=== PATIENT | female | born 2005 | race Two or more races ===

== ENCOUNTER 2024-11-26 17:23 | Emergency (ER) | payer MEDICAID, SELFPAY ==
[2024-11-26 17:25] VITALS: BMI 31.7
[2024-11-26 17:57] VITALS: BP 135/85; PULSE 93; RESP 19; TEMP 36.6; O2SAT 98
--- NOTE | 2024-11-26 17:57 | PD.EDRME ---
Rapid Medical Screening Exam RME Arrival date/time: 11/26/24 17:23 Chief Complaint: Ankle/Foot Injury Time Seen by Provider: 11/26/24 17:57 Vital signs: Vital Signs Temperature 97.9 F 11/26/24 17:57 Pulse Rate 93 11/26/24 17:57 Respiratory Rate 19 11/26/24 17:57 Blood Pressure 135/85 H 11/26/24 17:57 Pulse Oximetry (%) 98 11/26/24 17:57 Oxygen Delivery Method Room Air 11/26/24 17:57 RME Narrative: 19-year-old female presents to the ED with a complaint of left ankle pain and swelling as well as bruising secondary to an injury she sustained on Tuesday. She tripped and fell, exacerbating a previous injury approximately 2 months ago. She was not evaluated for that injury at that time. She denies numbness or tingling.
--- NOTE | 2024-11-26 18:01 | XR_ITS ---
EXAMINATION: Ankle, left 3 views . Technique: Ankle AP, oblique, lateral 3 views Date and time of exam: November 26, 2024 1809 hrs. Indications: Patient fell 3 days ago with injury to the knee, ankle pain. Findings: Bimalleolar soft tissue swelling No occult fracture or dislocation Impression: No ankle fracture or dislocation
--- NOTE | 2024-11-26 18:18 | PD.EDANKLE ---
Lower Extremity Injury RME/HPI General Chief Complaint: Ankle/Foot Injury Stated Complaint: L FOOT SWELLING Time Seen by Provider: 11/26/24 17:57 Arrival date/time: 11/26/24 17:23 19-year-old female presents to the ED with a complaint of left ankle pain and swelling as well as bruising secondary to an injury she sustained on Tuesday. She tripped and fell, exacerbating a previous injury approximately 2 months ago. She was not evaluated for that injury at that time. She denies numbness or tingling. Mode of arrival: ambulatory Limitations: no limitations RME / HPI RME / HPI Narrative: 19-year-old female presents to the ED with a complaint of left ankle pain and swelling as well as bruising secondary to an injury she sustained on Tuesday. She tripped and fell, exacerbating a previous injury approximately 2 months ago. She was not evaluated for that injury at that time. She denies numbness or tingling. MD complaint: ankle injury (Left) Onset (ago): day(s) (3 to 4 days ago) Injury: Left: ankle Type of Injury: unknown Place: street/outdoors Relieving factors: nothing Exacerbating factors: movement Context: fall Associated symptoms: swelling and ambulatory Other symptoms: none Treatments prior to arrival: other (None) Related Data Home Medications ?Medication ?Instructions ?Recorded ?Confirmed Amox Tr/Potassium Clavulanate Susp PO BID ##0 07/07/13 (Augmentin Susp) Promethazine Hcl SYRUP * 12.5 mg BID ##0 07/07/13 (PHENERGAN SYRUP *) ibuprofen 100 mg/5 mL oral ##0 07/07/13 suspension (Children's Motrin) Allergies Allergy/AdvReac Type Severity Reaction Status Date / Time No Known Allergies Allergy Mild Uncoded 06/08/09 10:35 Review of Systems Review of Systems Systems Reviewed: All systems reviewed, normal except as documented Past Medical History Social History SMOKING STATUS: Never smoker ED Exam Narrative Physical exam: Left ankle swelling with tenderness to the medial tibia/malleolus as well as distal fibula/lateral malleolus. Pain with dorsiflexion and plantarflexion. Ecchymosis noted to the medial malleolus and distal anterior tibia. CMS intact distally. General Limitations: Present no limitations General appearance: Present alert and in no apparent distress Head Head exam: Present atraumatic and normal inspection Eye Eye exam: Present normal appearance; Absent scleral icterus or conjunctival injection ENT ENT exam: Present normal exam Neck Neck exam: Present normal inspection Chest Chest inspection: Present normal inspection Respiratory Respiratory exam: Absent respiratory distress Cardiovascular Cardiovascular exam: Present regular rate and normal rhythm Abdominal Exam Abdominal exam: Absent distention Extremities Exam Extremities exam: Present tenderness and joint swelling Expanded Lower Extremity Exam Lower leg exam: Present tenderness, swelling and ecchymosis Ankle exam: Present tenderness, swelling and ecchymosis Foot/toe exam: Present normal inspection, full ROM, swelling and ecchymosis; Absent tenderness Neurovascular/Tendon exam: Present normal capillary refill; Absent pulse deficit, motor deficit, sensory deficit or significant pain with passive ROM of distal joint Gait: not tested/not observed Back Exam Back exam: Present full ROM Neurological Exam Neurological exam: Present alert and oriented X3 Psychiatric Psychiatric exam: Present normal affect and normal mood Skin Skin exam: Present warm, dry, intact and normal color Course Course Course Narrative: 19-year-old female presents to the ED with a complaint of left ankle pain and swelling as well as bruising secondary to an injury she sustained on Tuesday. She tripped and fell, exacerbating a previous injury approximately 2 months ago. She was not evaluated for that injury at that time. She denies numbness or tingling. Exam reveals: Left ankle swelling with tenderness to the medial tibia/malleolus as well as distal fibula/lateral malleolus. Pain with dorsiflexion and plantarflexion. Ecchymosis noted to the medial malleolus and distal anterior tibia. CMS intact distally. X-rays of the left ankle were ordered and pending. Quality Measures none Orders Category Date Time Status Crutches .NOW Care 11/26/24 19:06 Completed mack wrap [Splint / Immobilizer] STAT Care 11/26/24 19:06 Completed XR ankle comp LT min 3V Stat Exams 11/26/24 18:01 Completed Vital Signs Vital signs: Vital Signs Temperature 97.9 F 11/26/24 17:57 Pulse Rate 93 11/26/24 17:57 Respiratory Rate 19 11/26/24 17:57 Blood Pressure 135/85 H 11/26/24 17:57 Pulse Oximetry (%) 98 11/26/24 17:57 Oxygen Delivery Method Room Air 04/14/25 17:57 Extremity Injury, Lower MDM Narrative MDM Narrative:: 19-year-old female presents to the ED with a complaint of left ankle pain and swelling as well as bruising secondary to an injury she sustained on Tuesday. She tripped and fell, exacerbating a previous injury approximately 2 months ago. She was not evaluated for that injury at that time. She denies numbness or tingling. Exam reveals: Left ankle swelling with tenderness to the medial tibia/malleolus as well as distal fibula/lateral malleolus. Pain with dorsiflexion and plantarflexion. Ecchymosis noted to the medial malleolus and distal anterior tibia. CMS intact distally. X-rays of the left ankle were ordered and pending. Care of patient transferred to Dr. Bojorquez at end of shift. Patient data External records reviewed:: None Clinical information provided by:: patient Social determinants that could affect healthcare access:: none Patient has the following chronic illnesses:: None How is presenting disease/condition affected by chronic disease/condition?: no chronic disease Evaluation data The following diagnostics were reviewed and interpreted by me:: radiology exam(s) Lab and/or radiology exams considered but not ordered:: CT or MRI of the left ankle. Interpretation Summary: Care of patient transferred to Dr. Bojorquez at end of shift. Medications / Prescriptions Medications or Prescriptions considered but not ordered:: Hydrocodone, oxycodone, Toradol Medication administrations:: N/A Consultations Consultation(s) initiated? (list below): No Diagnosis Extremity Injury, Lower Differential Diagnosis: ankle sprain and strain and ankle fracture Most likely diagnosis given after review of the tests above:: Care of patient transferred to Dr. Bojorquez at end of shift. Admission Indicated Admission indicated?: not indicated Explain why admission is indicated or not indicated:: Care of patient transferred to Dr. Bojorquez at end of shift. Admission Request Was there a request for admission?: No Disposition Plan Disposition Plan: Discharge Discharge Attestation Discharge Attestation: The patient and all family members were given an opportunity to ask questions and understood the discharge instructions. Discharge instructions specifically effects, indications for sooner follow up or return to the emergency department, and the expected course of current diagnosis. Patient condition: Stable Discharge Plan Plan Patient Disposition: HOME (Self Care) Discharge Disposition comment: Stable Prescriptions/Referrals Prescriptions/Med Rec: No Action ibuprofen [Children's Motrin] 100 MG/5 ML suspension Qty: 0 Promethazine Hcl SYRUP * (PHENERGAN SYRUP *) 6.25 MG/5 ML syrup 12.5 mg BID Qty: 0 Patient Comments: FOR NAUSEA OR VOMITING Amox Tr/Potassium Clavulanate Susp (Augmentin Susp) 100 ML SUSP.RECON PO BID Qty: 0 Referrals: No Primary/Family,Physician [Primary Care Provider] - In 1 week Problem List Clinical Impression: Ankle sprain and strain Patient/Caregiver Discharge Instructions Other Activity Instructions:: Use the Mack wrap to help with swelling and pain. Ice and elevate the left ankle to help with swelling. Use the crutches until you are able to bear weight. Education Materials: ED Ankle Sprain (Adult) Additional Instructions: Follow-up with your primary care physician in 24 to 48 hours. Return to the ED for any new or worsening symptoms. Print Language: American Stand Alone Forms: Latisha Award Info., Patient Portal Info Letter PA/ARIAS Supervising Physician PA/ARIAS Supervising Physician: Dr. Bojorquez
== END 2024-11-26 19:30 | disposition home or self-care (01) ==
PROVIDERS: Emergency Provider Emergency Medicine
DX: S93.402A Sprain of unspecified ligament of left ankle, initial encounter (principal); S96.912A Strain of unspecified muscle and tendon at ankle and foot level, left foot, initial encounter; W01.0XXA Fall on same level from slipping, tripping and stumbling without subsequent striking against object, initial encounter
CPT/HCPCS: 73610; 99283